=== PATIENT | female | born 1955 | race Caucasian/White ===

== ENCOUNTER 2022-10-09 06:00 | Day surgery (SDC) | payer BC ==
[~2022-10-09] VITALS: Ht 162.6 cm; Wt 79.6 kg
[2022-10-09] MEDS ORDERED: CEFAZOLIN SOD 1 GM in D5W 50 ML IV ONE (07:00)
[2022-10-09] MEDS ORDERED: ONDANSETRON HCL 4 MG/2 ML VIAL ONE (07:36)
[2022-10-09] MEDS ORDERED: SUCCINYLCHOLINE CHLORIDE 20 MG/ML(QUELICIN) ONE (07:36)
[2022-10-09] MEDS ORDERED: BUPIVACAINE /PF 0.25% 30 ML VIAL INJ ONE (07:36)
[2022-10-09] MEDS ORDERED: KETOROLAC TROMETHAMINE 30 MG VIAL ONE (07:36)
[2022-10-09] MEDS ORDERED: ROCURONIUM BROMIDE 10 MG/ML (ZEMURON) ONE (07:36)
[2022-10-09] MEDS ORDERED: HYDROMORPHONE HCL IN 0.9% NACL 0.2 MG/ML DRIP IV ONE (07:36)
[2022-10-09] MEDS ORDERED: SUGAMMADEX SODIUM 200 MG/2 ML VIAL IV ONE (07:36)
[2022-10-09] MEDS ORDERED: DEXAMETHASONE SOD PHOSPHATE 4 MG/ML VIAL ONE (07:36)
[2022-10-09] MEDS ORDERED: fentaNYL CITRATE 250 MCG/5 ML AMP ONE (07:36)
[2022-10-09] MEDS ORDERED: METOCLOPRAMIDE HCL 10 MG/2 ML VIAL ONE (07:36)
[2022-10-09] MEDS ORDERED: NS IRRIG SOLN 1000 ML IR ONE ×2 (07:36)
[2022-10-09] MEDS ORDERED: DESFLURANE 15 MIN GAS INH ONE (07:36)
[2022-10-09] MEDS ORDERED: HYDROmorphone 1 MG/ML INJ. CARTRIDGE IVP PRN ×2 (08:45)
[2022-10-09] MEDS ORDERED: D5/0.45 NS 1,000 ML IV SCH (08:45)
[2022-10-09] MEDS ORDERED: ONDANSETRON HCL 4 MG/2 ML VIAL IVP PRN (08:45)
[2022-10-09] MEDS ORDERED: HYDROmorphone 2 MG/ML VIAL IVP PRN (08:45)
[2022-10-09] MEDS ORDERED: HYDROcodone/ACETAMIN 5-325 MG TAB (NORCO/ VICODIN) PO PRN ×2 (08:45)
[2022-10-09 12:35] VITALS: BP_SYST 147
== END 2022-10-09 11:12 | disposition home or self-care (01) ==
LOC: SDS 06:00 → SMU 06:00 → SDS 11:12
PROVIDERS: ATTEND Colon & Rectal Surgery
DX: K80.10 Calculus of gallbladder with chronic cholecystitis without obstruction (principal); I50.9 Heart failure, unspecified; F41.9 Anxiety disorder, unspecified; J45.909 Unspecified asthma, uncomplicated; K21.9 Gastro-esophageal reflux disease without esophagitis; Z80.1 Family history of malignant neoplasm of trachea, bronchus and lung; Z80.8 Family history of malignant neoplasm of other organs or systems; Z80.0 Family history of malignant neoplasm of digestive organs; Z79.899 Other long term (current) drug therapy
CPT/HCPCS: 87081; 47563; 74300; 88304; J3490 ×2; J0690; J1100; J1885; J2765; J2405; J0330; J3010; Q9967; J7060; C1758; C1727; 76000